=== PATIENT | male | born 1940 | race African-American/Black ===

== ENCOUNTER 2024-01-16 13:59 | Inpatient (IN) | payer OTHER, BC ==
[2024-01-16 15:23] LABS: BASO % 0.2 % (0-2.0); HEMATOCRIT 35.7 % (35.4-49); HEMOGLOBIN 11.6 GM/dL (11.7-16.9); MCH 33.2 pg (25.7-33.7); MCHC 32.5 g/dl (32.0-35.9); MEAN CELL VOLUME 102.2 fl (80-96); MEAN PLT VOLUME 8.2 fl (7.5-11.1); MONO % 5.8 % (3.8-10.2); PLATELET COUNT 255 10^3/uL (134-434); RBC 3.49 M/mm3 (4.00-5.60); RDW 13.4 % (11.9-15.9); WHITE BLOOD COUNT 16.9 K/mm3 (4.0-10.0)
[2024-01-16 15:26] LABS: INR 1.35 (0.83-1.09); PROTHROMBIN TIME (PATIENT) 15.1 SEC (9.7-13.0)
[2024-01-16 15:29] LABS: ACTIVATED PTT 32.5 SECONDS (25.2-36.5)
[2024-01-16] MEDS ORDERED: ACETAMINOPHEN INJECTION 100 ML IVPB ONE ×2 (15:34→21:52)
[2024-01-16 15:40] LABS: POTASSIUM 4.4 mmol/L (3.5-5.1)
[2024-01-16 15:42] LABS: ALBUMIN 2.6 g/dl (3.4-5.0); CALCIUM 8.4 mg/dL (8.5-10.1); MAGNESIUM 2.4 mg/dL (1.8-2.4)
[2024-01-16 15:43] LABS: BLOOD UREA NITROGEN 40.9 mg/dL (7-18)
[2024-01-16 15:45] LABS: CREATININE 2.8 mg/dL (0.55-1.3)
[2024-01-16 15:47] LABS: TOT PROT 7.3 g/dl (6.4-8.2)
[2024-01-16 15:50] LABS: N-TERMINAL BNP 442.2 pg/ml (5-450)
[2024-01-16] MEDS: ACETAMINOPHEN 1000 MG/100 ML BAG IVPB ONE (15:59)
[2024-01-16] MEDS ORDERED: PIPERACILLIN/TAZOB 4.5 GM 4.5 GM/100 ML BAG IVPB ONE (16:02)
[2024-01-16] MEDS: PIPERACILLIN/TAZOB 4.5 GM 4.5 GM in DEXTROSE 5%-WATER 100 ML IVPB ONE (16:06)
[2024-01-16] MEDS: VANCOMYCIN 2,000 MG in DEXTROSE 5%-WATER - 500 ML IVPB ONE (16:46)
[2024-01-16 16:54] LABS: EPI CELLS 7 /uL (0-25.1); HYALINE CASTS 0 /uL (0-3.1); URINE APPEARANCE TURBID; URINE BACTERIA >9,000 /uL (0-1359); URINE BILIRUBIN NEGATIVE (NEGATIVE); URINE COLOR YELLOW; URINE GLUCOSE (UA) 3+ (NEGATIVE); URINE KETONE TRACE (NEGATIVE); URINE LEUK ESTERASE 2+ (NEGATIVE); URINE NITRITE NEGATIVE (NEGATIVE); URINE PROTEIN 1+ (NEGATIVE); URINE RBC 99 /uL (0-23.9); URINE WBC 3529 /uL (0-25.8)
[2024-01-16] MEDS: VANCOMYCIN/WATER 2 GRAMS 2,000 MG/400 ML PIGGYBACK IVPB ONE (17:39)
[2024-01-16 20:26] LABS: RETICULOCYTES 1.53 % (0.5-1.5)
[2024-01-16] MEDS: INSULIN ASPART SLIDING SCALE (NOVOLOG) 1 VIAL SQ SCH (21:27)
[2024-01-16] MEDS: ACETAMINOPHEN 1000 MG/100 ML BAG IVPB SCH (21:55)
[2024-01-16] MEDS: HEPARIN NA (PORCINE) 5,000 UNITS/ML 1ML VIAL SQ SCH (23:29)
[2024-01-16] MEDS: ATORVASTATIN CA 20 MG TABLET (FP) PO SCH (23:29)
[2024-01-16 23:45] VITALS: BMI 30.9
[2024-01-17] MEDS ORDERED: INSULIN (NOVOLOG) ASPART 100 UNITS/ML 10ML VIAL ONE (05:56)
[2024-01-17 08:37] LABS: HEMATOCRIT 31.4 % (35.4-49); HEMOGLOBIN 10.5 GM/dL (11.7-16.9); MCH 34.2 pg (25.7-33.7); MCHC 33.6 g/dl (32.0-35.9); MEAN CELL VOLUME 101.8 fl (80-96); MEAN PLT VOLUME 8.4 fl (7.5-11.1); PLATELET COUNT 232 10^3/uL (134-434); RBC 3.09 M/mm3 (4.00-5.60); RDW 13.6 % (11.9-15.9); WHITE BLOOD COUNT 10.7 K/mm3 (4.0-10.0)
[2024-01-17 08:55] LABS: POTASSIUM 4.1 mmol/L (3.5-5.1)
[2024-01-17 09:13] LABS: ALBUMIN 2.5 g/dl (3.4-5.0)
[2024-01-17 09:14] LABS: BLOOD UREA NITROGEN 42.7 mg/dL (7-18); CALCIUM 8.7 mg/dL (8.5-10.1); MAGNESIUM 2.6 mg/dL (1.8-2.4)
[2024-01-17 09:17] LABS: CREATININE 2.6 mg/dL (0.55-1.3); TOT PROT 6.7 g/dl (6.4-8.2)
[2024-01-17 09:18] LABS: BILIRUBIN,TOTAL 0.9 mg/dL (0.2-1)
[2024-01-17 10:02] LABS: URIC ACID 8.1 mg/dL (2.6-7.2)
[2024-01-17] MEDS: ASPIRIN 81 MG CHEWABLE TABLETS PO SCH (10:32)
[2024-01-17] MEDS: FINASTERIDE 5 MG TABLET (FP) PO SCH (10:32)
[2024-01-17] MEDS: PIPERACILLIN/TAZOB 2.25 GM 2.25 GM in DEXTROSE 5%-WATER - 50 ML IVPB SCH (12:49)
[2024-01-17] MEDS: SODIUM CHLORIDE 0.45% 1,000 ML IV SCH (12:49)
[2024-01-17] MEDS ORDERED: VANCOMYCIN/WATER 1250 MG 1,250 MG/250 ML BAG IVPB SCH ×2 (17:40)
[2024-01-17] MEDS ORDERED: PIPERACILLIN/TAZOB 4.5 GM 4.5 GM in DEXTROSE 5%-WATER 100 ML IVPB SCH (22:00)
[2024-01-18 07:49] LABS: BASO % 0.3 % (0-2.0); EOS % 1.6 % (0-4.5); HEMATOCRIT 28.6 % (35.4-49); HEMOGLOBIN 9.5 GM/dL (11.7-16.9); LYMPH % 32.9 % (8-40); MCH 33.9 pg (25.7-33.7); MCHC 33.3 g/dl (32.0-35.9); MEAN CELL VOLUME 101.7 fl (80-96); MEAN PLT VOLUME 8.3 fl (7.5-11.1); MONO % 9.6 % (3.8-10.2); NEUT % 55.6 % (42.8-82.8); PLATELET COUNT 233 10^3/uL (134-434); RBC 2.81 M/mm3 (4.00-5.60); RDW 13.7 % (11.9-15.9); WHITE BLOOD COUNT 8.2 K/mm3 (4.0-10.0)
[2024-01-18 08:11] LABS: POTASSIUM 4.1 mmol/L (3.5-5.1)
[2024-01-18 08:18] LABS: CALCIUM 8.5 mg/dL (8.5-10.1)
[2024-01-18 08:19] LABS: ALBUMIN 2.4 g/dl (3.4-5.0); BLOOD UREA NITROGEN 40.1 mg/dL (7-18)
[2024-01-18 08:22] LABS: CREATININE 2.4 mg/dL (0.55-1.3)
[2024-01-18 08:23] LABS: BILIRUBIN,TOTAL 0.9 mg/dL (0.2-1); TOT PROT 6.7 g/dl (6.4-8.2)
[2024-01-18] MEDS ORDERED: INSULIN (NOVOLOG) ASPART 100 UNITS/ML 10ML VIAL ONE ×2 (12:35→21:08)
[2024-01-19 07:39] LABS: BASO % 0.2 % (0-2.0); EOS % 2.7 % (0-4.5); HEMOGLOBIN 10.3 GM/dL (11.7-16.9); MCH 34.1 pg (25.7-33.7); MCHC 33.4 g/dl (32.0-35.9); MEAN CELL VOLUME 102.1 fl (80-96); MEAN PLT VOLUME 8.4 fl (7.5-11.1); MONO % 8.7 % (3.8-10.2); NEUT % 45.4 % (42.8-82.8); PLATELET COUNT 235 10^3/uL (134-434); RBC 3.04 M/mm3 (4.00-5.60); RDW 13.4 % (11.9-15.9); WHITE BLOOD COUNT 6.5 K/mm3 (4.0-10.0)
[2024-01-19 07:59] LABS: POTASSIUM 4.2 mmol/L (3.5-5.1)
[2024-01-19 08:00] LABS: ALBUMIN 2.3 g/dl (3.4-5.0); CALCIUM 8.3 mg/dL (8.5-10.1)
[2024-01-19 08:04] LABS: CREATININE 2.3 mg/dL (0.55-1.3)
[2024-01-19 08:05] LABS: BILIRUBIN,TOTAL 0.6 mg/dL (0.2-1); TOT PROT 6.6 g/dl (6.4-8.2)
[2024-01-19] MEDS ORDERED: ACETAMINOPHEN 500 MG TABLET (FP) PO PRN (08:18)
[2024-01-19] MEDS ORDERED: INSULIN (NOVOLOG) ASPART 100 UNITS/ML 10ML VIAL ONE (10:53)
[2024-01-19] MEDS: CEFTRIAXONE 2 GM in DEXTROSE 5%-WATER 100 ML IVPB SCH (13:31)
[2024-01-19] MEDS: PIPERACILLIN/TAZOB 4.5 GM 4.5 GM in DEXTROSE 5%-WATER 100 ML IVPB SCH (17:41)
[2024-01-20 07:04] LABS: HEMATOCRIT 30.6 % (35.4-49); HEMOGLOBIN 10.5 GM/dL (11.7-16.9); MCH 34.6 pg (25.7-33.7); MCHC 34.3 g/dl (32.0-35.9); MEAN CELL VOLUME 100.8 fl (80-96); MEAN PLT VOLUME 8.5 fl (7.5-11.1); PLATELET COUNT 252 10^3/uL (134-434); RBC 3.03 M/mm3 (4.00-5.60); RDW 13.7 % (11.9-15.9); WHITE BLOOD COUNT 6.5 K/mm3 (4.0-10.0)
[2024-01-20 07:27] LABS: ALBUMIN 2.4 g/dl (3.4-5.0); BLOOD UREA NITROGEN 22.8 mg/dL (7-18); CALCIUM 8.8 mg/dL (8.5-10.1)
[2024-01-20 07:29] LABS: CREATININE 1.9 mg/dL (0.55-1.3)
[2024-01-20 07:31] LABS: BILIRUBIN,TOTAL 0.4 mg/dL (0.2-1); TOT PROT 6.3 g/dl (6.4-8.2)
[2024-01-20] MEDS ORDERED: INSULIN (NOVOLOG) ASPART 100 UNITS/ML 10ML VIAL ONE ×2 (18:02→21:07)
[2024-01-21] MEDS ORDERED: INSULIN (NOVOLOG) ASPART 100 UNITS/ML 10ML VIAL ONE (05:43)
[2024-01-21 08:31] LABS: HEMATOCRIT 31.8 % (35.4-49); HEMOGLOBIN 10.8 GM/dL (11.7-16.9); MCH 33.9 pg (25.7-33.7); MCHC 33.8 g/dl (32.0-35.9); MEAN CELL VOLUME 100.5 fl (80-96); MEAN PLT VOLUME 8.5 fl (7.5-11.1); PLATELET COUNT 287 10^3/uL (134-434); RBC 3.17 M/mm3 (4.00-5.60); RDW 13.8 % (11.9-15.9); WHITE BLOOD COUNT 6.5 K/mm3 (4.0-10.0)
[2024-01-21 08:59] LABS: POTASSIUM 4.4 mmol/L (3.5-5.1)
[2024-01-21 09:10] LABS: ALBUMIN 2.4 g/dl (3.4-5.0); BLOOD UREA NITROGEN 19.9 mg/dL (7-18); CALCIUM 8.7 mg/dL (8.5-10.1)
[2024-01-21 09:12] LABS: CREATININE 1.7 mg/dL (0.55-1.3)
[2024-01-21 09:20] LABS: BILIRUBIN,TOTAL 0.5 mg/dL (0.2-1)
[2024-01-21 21:51] VITALS: RESP 18
[2024-01-22 07:17] LABS: HEMATOCRIT 32.8 % (35.4-49); MCH 34.4 pg (25.7-33.7); MCHC 33.7 g/dl (32.0-35.9); PLATELET COUNT 285 10^3/uL (134-434); RBC 3.21 M/mm3 (4.00-5.60); RDW 13.6 % (11.9-15.9); WHITE BLOOD COUNT 7.6 K/mm3 (4.0-10.0)
[2024-01-22 07:34] LABS: POTASSIUM 4.4 mmol/L (3.5-5.1)
[2024-01-22 07:36] LABS: CALCIUM 8.7 mg/dL (8.5-10.1)
[2024-01-22 07:37] LABS: ALBUMIN 2.4 g/dl (3.4-5.0); BLOOD UREA NITROGEN 19.8 mg/dL (7-18)
[2024-01-22 07:40] LABS: CREATININE 1.7 mg/dL (0.55-1.3)
[2024-01-22 07:41] LABS: BILIRUBIN,TOTAL 0.4 mg/dL (0.2-1); TOT PROT 6.8 g/dl (6.4-8.2)
[2024-01-22] MEDS ORDERED: LOSARTAN POTASSIUM 25 MG TABLET PO SCH (10:00)
[2024-01-22] MEDS: CEFPODOXIME PROXETIL 200 MG TABLET [NF] PO SCH (10:57)
[2024-01-22] MEDS: LOSARTAN POTASSIUM 50 MG TABLET PO SCH (10:57)
[2024-01-22] MEDS: FUROSEMIDE 40 MG TABLET (FP) PO SCH (17:28)
[2024-01-22] MEDS ORDERED: INSULIN (NOVOLOG) ASPART 100 UNITS/ML 10ML VIAL ONE (21:53)
[2024-01-23 06:12] VITALS: BP 128/75; PULSE 65; TEMP 97.3
== END 2024-01-23 11:26 | DRG 871 ==
LOC: JER 13:59 → JERBED 15:29 → J7W 22:46
PROVIDERS: ADMIT Internal Medicine; ATTEND Nurse Practitioner
DX: A41.59 Other Gram-negative sepsis (principal); G93.41 Metabolic encephalopathy; S22.32XA Fracture of one rib, left side, initial encounter for closed fracture; N39.0 Urinary tract infection, site not specified; I13.0 Hypertensive heart and chronic kidney disease with heart failure and stage 1 through stage 4 chronic kidney disease, or unspecified chronic kidney disease; N18.4 Chronic kidney disease, stage 4 (severe); I50.30 Unspecified diastolic (congestive) heart failure; E11.22 Type 2 diabetes mellitus with diabetic chronic kidney disease; F03.90 Unspecified dementia, unspecified severity, without behavioral disturbance, psychotic disturbance, mood disturbance, and anxiety; I25.10 Atherosclerotic heart disease of native coronary artery without angina pectoris; N40.0 Benign prostatic hyperplasia without lower urinary tract symptoms; E78.5 Hyperlipidemia, unspecified; E66.9 Obesity, unspecified; Z68.31 Body mass index [BMI] 31.0-31.9, adult; E86.0 Dehydration; X58.XXXA Exposure to other specified factors, initial encounter; Y93.9 Activity, unspecified; Y92.89 Other specified places as the place of occurrence of the external cause; Y99.9 Unspecified external cause status
CPT/HCPCS: 0241U-QW; 36415; 70450-TC; 71045-TC-FY; 74176-TC; 76775-TC; 80048; 80053; 81003; 82306; 82550; 82553; 82570; 82607; 82728; 82746; 82962; 83540; 83550; 83690; 83735; 83880; 84100; 84300; 84443; 84484; 84550; 85025; 85027; 85045; 85610; 85730; 87040; 87086; 87186; 93005; 93010; 93306-TC; 97116-GP; 99291; J0131; J1644

== ENCOUNTER 2024-04-15 11:41 | Inpatient (IN) | payer OTHER, BC ==
[2024-04-15 14:45] LABS: BASO % 0.4 % (0-2.0); EOS % 2.5 % (0-4.5); HEMATOCRIT 32.4 % (35.4-49); HEMOGLOBIN 10.5 GM/dL (11.7-16.9); LYMPH % 42.2 % (8-40); MCH 33.7 pg (25.7-33.7); MCHC 32.5 g/dl (32.0-35.9); MEAN CELL VOLUME 103.7 fl (80-96); MEAN PLT VOLUME 8.1 fl (7.5-11.1); MONO % 8.8 % (3.8-10.2); NEUT % 46.1 % (42.8-82.8); PLATELET COUNT 192 10^3/uL (134-434); RBC 3.12 M/mm3 (4.00-5.60); RDW 14.5 % (11.9-15.9); WHITE BLOOD COUNT 5.4 K/mm3 (4.0-10.0)
[2024-04-15 14:58] LABS: INR 1.25 (0.83-1.09); PROTHROMBIN TIME (PATIENT) 14.3 SEC (9.7-13.0)
[2024-04-15 15:04] LABS: POTASSIUM 4.3 mmol/L (3.5-5.1)
[2024-04-15 15:07] LABS: CALCIUM 8.8 mg/dL (8.5-10.1)
[2024-04-15 15:08] LABS: ALBUMIN 2.9 g/dl (3.4-5.0); BLOOD UREA NITROGEN 21.9 mg/dL (7-18); MAGNESIUM 2.1 mg/dL (1.8-2.4)
[2024-04-15 15:11] LABS: CREATININE 1.7 mg/dL (0.55-1.3); PHOSPHOROUS 2.9 mg/dL (2.5-4.9)
[2024-04-15 15:12] LABS: BILIRUBIN,TOTAL 0.6 mg/dL (0.2-1); TOT PROT 7.4 g/dl (6.4-8.2)
[2024-04-15 15:16] LABS: N-TERMINAL BNP 556.6 pg/ml (5-450)
[2024-04-15] MEDS ORDERED: PIPERACILLIN/TAZOB 3.375 GM 3.375 GM/50 ML BAG IVPB ONE (17:54)
[2024-04-15] MEDS ORDERED: FUROSEMIDE 40 MG/4 ML INJECTABLE VIAL ONE (17:54)
[2024-04-15] MEDS: FUROSEMIDE 40 MG/4 ML INJECTABLE VIAL IVPUSH ONE ×2 (17:56)
[2024-04-15] MEDS: PIPERACILLIN/TAZOB 3.375 GM 3.375 GM in DEXTROSE 5%-WATER - 50 ML IVPB ONE (17:56)
[2024-04-15] MEDS: VANCOMYCIN PREMIX 1.5 GM 1,500 MG/300 ML BAG IVPB ONE (18:20)
[2024-04-15] MEDS: VANCOMYCIN HCL 1,500 MG in DEXTROSE 5%-WATER - 500 ML IVPB ONE (18:20)
[2024-04-15] MEDS ORDERED: PATIENT'S OWN MEDICATION (NON-FORMULARY) (Diclofenac Sodium 0.01 MG/MG Gel) TD SCH (22:00)
[2024-04-15] MEDS: LACTULOSE 20 GM/30 ML UDC (FOR ORAL USE ONLY) PO SCH (23:40)
[2024-04-15] MEDS: LIDOCAINE 4% PATCH TP SCH (23:40)
[2024-04-15] MEDS: LABETALOL HCL 200 MG TABLET (FP) PO SCH (23:42)
[2024-04-15] MEDS: ATORVASTATIN CA 20 MG TABLET (FP) PO SCH (23:42)
[2024-04-15] MEDS: INSULIN ASPART SLIDING SCALE (NOVOLOG) 1 VIAL SQ SCH (23:43)
[2024-04-15] MEDS: LATANOPROST 0.005% OPHTH SOLN 2.5ML BOTTLE OU SCH (23:43)
[2024-04-16] MEDS: FUROSEMIDE 40 MG/4 ML INJECTABLE VIAL IVPUSH SCH (06:24)
[2024-04-16 08:50] LABS: BASO % 0.5 % (0-2.0); HEMATOCRIT 34.8 % (35.4-49); HEMOGLOBIN 11.5 GM/dL (11.7-16.9); LYMPH % 41.7 % (8-40); MCH 33.7 pg (25.7-33.7); MCHC 33.1 g/dl (32.0-35.9); MEAN CELL VOLUME 101.6 fl (80-96); MEAN PLT VOLUME 8.1 fl (7.5-11.1); NEUT % 45.8 % (42.8-82.8); PLATELET COUNT 188 10^3/uL (134-434); RBC 3.43 M/mm3 (4.00-5.60); RDW 14.6 % (11.9-15.9); WHITE BLOOD COUNT 4.9 K/mm3 (4.0-10.0)
[2024-04-16 09:10] LABS: POTASSIUM 3.7 mmol/L (3.5-5.1)
[2024-04-16 09:13] LABS: CALCIUM 9.3 mg/dL (8.5-10.1)
[2024-04-16 09:14] LABS: BLOOD UREA NITROGEN 22.3 mg/dL (7-18); MAGNESIUM 2.1 mg/dL (1.8-2.4)
[2024-04-16 09:16] LABS: CREATININE 1.7 mg/dL (0.55-1.3)
[2024-04-16 09:17] LABS: PHOSPHOROUS 3.1 mg/dL (2.5-4.9)
[2024-04-16 09:18] LABS: BILIRUBIN,TOTAL 0.6 mg/dL (0.2-1); TOT PROT 7.5 g/dl (6.4-8.2)
[2024-04-16] MEDS: ENOXAPARIN NA (PORCINE) 40 MG/0.4 ML DISP.SYRIN SQ SCH (09:21)
[2024-04-16] MEDS: ASPIRIN 81 MG CHEWABLE TABLETS PO SCH (09:21)
[2024-04-16] MEDS: amLODIPine BESYLATE 10 MG TABLET (FP) PO SCH (09:21)
[2024-04-16] MEDS: FINASTERIDE 5 MG TABLET (FP) PO SCH (09:21)
[2024-04-16] MEDS: LOSARTAN POTASSIUM 50 MG TABLET PO SCH (09:21)
[2024-04-16] MEDS: FOLIC ACID 1 MG TABLET (FP) PO SCH (09:21)
[2024-04-16] MEDS: LIDOCAINE PATCH REMOVAL MC SCH (09:24)
[2024-04-17] MEDS: FUROSEMIDE 40 MG TABLET (FP) PO SCH (06:34)
[2024-04-17 08:47] LABS: BASO % 0.6 % (0-2.0); EOS % 0.6 % (0-4.5); HEMATOCRIT 33.4 % (35.4-49); HEMOGLOBIN 11.2 GM/dL (11.7-16.9); LYMPH % 39.4 % (8-40); MCHC 33.7 g/dl (32.0-35.9); MEAN CELL VOLUME 100.9 fl (80-96); MEAN PLT VOLUME 8.6 fl (7.5-11.1); NEUT % 51.4 % (42.8-82.8); PLATELET COUNT 205 10^3/uL (134-434); RBC 3.31 M/mm3 (4.00-5.60); RDW 14.1 % (11.9-15.9); WHITE BLOOD COUNT 5.4 K/mm3 (4.0-10.0)
[2024-04-17 09:09] LABS: POTASSIUM 3.9 mmol/L (3.5-5.1)
[2024-04-17 09:20] LABS: CALCIUM 9.2 mg/dL (8.5-10.1)
[2024-04-17 09:21] LABS: BLOOD UREA NITROGEN 20.8 mg/dL (7-18); MAGNESIUM 1.9 mg/dL (1.8-2.4)
[2024-04-17 09:24] LABS: CREATININE 1.8 mg/dL (0.55-1.3)
[2024-04-17 09:25] LABS: BILIRUBIN,TOTAL 0.7 mg/dL (0.2-1); TOT PROT 7.5 g/dl (6.4-8.2)
[2024-04-17] MEDS: FUROSEMIDE 40 MG/4 ML INJECTABLE VIAL IVPB SCH (13:51)
[2024-04-17 15:42] VITALS: BMI 32.7
[2024-04-18 08:10] LABS: BASO % 0.8 % (0-2.0); EOS % 0.3 % (0-4.5); HEMATOCRIT 32.6 % (35.4-49); HEMOGLOBIN 10.7 GM/dL (11.7-16.9); LYMPH % 44.5 % (8-40); MCH 33.9 pg (25.7-33.7); MCHC 32.9 g/dl (32.0-35.9); MEAN PLT VOLUME 8.6 fl (7.5-11.1); MONO % 9.2 % (3.8-10.2); NEUT % 45.2 % (42.8-82.8); PLATELET COUNT 183 10^3/uL (134-434); RBC 3.17 M/mm3 (4.00-5.60); RDW 14.5 % (11.9-15.9)
[2024-04-18 08:29] LABS: POTASSIUM 3.8 mmol/L (3.5-5.1)
[2024-04-18 08:31] LABS: CALCIUM 8.8 mg/dL (8.5-10.1); MAGNESIUM 1.9 mg/dL (1.8-2.4)
[2024-04-18 08:34] LABS: CREATININE 1.7 mg/dL (0.55-1.3)
[2024-04-18 08:36] LABS: BILIRUBIN,TOTAL 0.6 mg/dL (0.2-1); TOT PROT 7.1 g/dl (6.4-8.2)
[2024-04-18] MEDS: DEXTROSE 5%-WATER - 250 ML IV SCH (16:14)
[2024-04-19 07:16] VITALS: RESP 18
[2024-04-19 08:30] LABS: HEMATOCRIT 33.1 % (35.4-49); HEMOGLOBIN 10.9 GM/dL (11.7-16.9); MCH 33.5 pg (25.7-33.7); MCHC 32.9 g/dl (32.0-35.9); MEAN CELL VOLUME 101.6 fl (80-96); PLATELET COUNT 181 10^3/uL (134-434); RBC 3.26 M/mm3 (4.00-5.60); RDW 14.4 % (11.9-15.9); WHITE BLOOD COUNT 6.2 K/mm3 (4.0-10.0)
[2024-04-19 08:31] LABS: BASO % 0.4 % (0-2.0); EOS % 2.1 % (0-4.5); LYMPH % 46.2 % (8-40); MEAN PLT VOLUME 9.1 fl (7.5-11.1); MONO % 11.1 % (3.8-10.2); NEUT % 40.2 % (42.8-82.8)
[2024-04-19 08:36] LABS: POTASSIUM 3.6 mmol/L (3.5-5.1)
[2024-04-19 08:45] LABS: ALBUMIN 3.2 g/dl (3.4-5.0); BLOOD UREA NITROGEN 27.3 mg/dL (7-18); CALCIUM 8.9 mg/dL (8.5-10.1)
[2024-04-19 08:47] LABS: MAGNESIUM 2.1 mg/dL (1.8-2.4)
[2024-04-19 08:49] LABS: BILIRUBIN,TOTAL 0.8 mg/dL (0.2-1); CREATININE 1.8 mg/dL (0.55-1.3); TOT PROT 7.5 g/dl (6.4-8.2)
[2024-04-19 13:37] VITALS: BP 117/63; PULSE 67; TEMP 98.4
== END 2024-04-19 14:12 | disposition home or self-care (01) | DRG 291 ==
LOC: JER 11:41 → JERBED 17:05 → J8W 21:10 → OBSVTOIN 04-16 08:52
PROVIDERS: ADMIT Internal Medicine; ATTEND Internal Medicine
DX: I13.0 Hypertensive heart and chronic kidney disease with heart failure and stage 1 through stage 4 chronic kidney disease, or unspecified chronic kidney disease (principal); I50.33 Acute on chronic diastolic (congestive) heart failure; N18.30 Chronic kidney disease, stage 3 unspecified; E11.22 Type 2 diabetes mellitus with diabetic chronic kidney disease; I25.10 Atherosclerotic heart disease of native coronary artery without angina pectoris; F03.90 Unspecified dementia, unspecified severity, without behavioral disturbance, psychotic disturbance, mood disturbance, and anxiety; E78.5 Hyperlipidemia, unspecified; M25.512 Pain in left shoulder; R29.810 Facial weakness; E66.9 Obesity, unspecified; Z68.30 Body mass index [BMI] 30.0-30.9, adult; N48.89 Other specified disorders of penis; N40.0 Benign prostatic hyperplasia without lower urinary tract symptoms; I35.0 Nonrheumatic aortic (valve) stenosis
CPT/HCPCS: 0241U-QW; 36415; 71045-TC-FY; 73030-TC-LT-FY; 80053; 82140; 82607; 82746; 82962; 83735; 83880; 84100; 84484; 85025; 85610; 85730; 86850; 86900; 86901; 87635; 93005; 93010; 93306-TC; 93970-TC; 93971; 97116-GP; 97161-GP; 99285-25; G0378

== ENCOUNTER 2024-06-06 13:29 | Inpatient (IN) | payer OTHER, BC ==
[2024-06-06 14:36] LABS: BASO % 0.2 % (0-2.0); EOS % 0.1 % (0-4.5); HEMATOCRIT 40.7 % (35.4-49); HEMOGLOBIN 13.4 GM/dL (11.7-16.9); MCH 32.4 pg (25.7-33.7); MCHC 32.9 g/dl (32.0-35.9); MEAN CELL VOLUME 98.6 fl (80-96); MEAN PLT VOLUME 8.5 fl (7.5-11.1); MONO % 6.6 % (3.8-10.2); NEUT % 89.1 % (42.8-82.8); PLATELET COUNT 213 10^3/uL (134-434); RBC 4.13 M/mm3 (4.00-5.60); RDW 13.5 % (11.9-15.9)
[2024-06-06] MEDS ORDERED: ACETAMINOPHEN INJECTION 100 ML ONE (14:36)
[2024-06-06 14:40] LABS: VENOUS BASE EXCESS 1.6 mmol/L (-2-2); VENOUS O2 SATURATION 79.7 % (70-80); VENOUS PCO2 44.8 mmHg (38-52); VENOUS PH 7.396 (7.310-7.410)
[2024-06-06 14:43] LABS: INR 1.15 (0.83-1.09); PROTHROMBIN TIME (PATIENT) 13.2 SEC (9.7-13.0)
[2024-06-06] MEDS: ACETAMINOPHEN 1000 MG/100 ML BAG IVPB ONE (14:44)
[2024-06-06] MEDS: SODIUM CHLORIDE 1,000 ML IV STA ×2 (14:44→15:57)
[2024-06-06 14:45] LABS: ACTIVATED PTT 30.3 SECONDS (25.2-36.5)
[2024-06-06] MEDS ORDERED: PIPERACILLIN/TAZOB 3.375 GM 3.375 GM/50 ML BAG IVPB ONE (14:46)
[2024-06-06 14:53] LABS: POTASSIUM 4.2 mmol/L (3.5-5.1)
[2024-06-06 14:56] LABS: ALBUMIN 3.2 g/dl (3.4-5.0); BLOOD UREA NITROGEN 35.1 mg/dL (7-18); CALCIUM 9.4 mg/dL (8.5-10.1)
[2024-06-06] MEDS ORDERED: VANCOMYCIN 1 GRAM (PRE-DOCKED) 1,000 MG/250 ML BAG IVPB ONE (14:56)
[2024-06-06 14:59] LABS: CREATININE 2.5 mg/dL (0.55-1.3)
[2024-06-06 15:00] LABS: BILIRUBIN,TOTAL 0.8 mg/dL (0.2-1)
[2024-06-06 15:01] LABS: TOT PROT 8.2 g/dl (6.4-8.2)
[2024-06-06] MEDS: PIPERACILLIN/TAZOB 3.375 GM 3.375 GM in DEXTROSE 5%-WATER - 50 ML IVPB ONE (15:13)
[2024-06-06 15:38] LABS: EPI CELLS 4 /uL (0-25.1); HYALINE CASTS 0 /uL (0-3.1); PH,URINE 5.5 (5.0-8.0); URINE APPEARANCE CLOUDY; URINE BACTERIA >9,000 /uL (0-1359); URINE BILIRUBIN NEGATIVE (NEGATIVE); URINE COLOR YELLOW; URINE GLUCOSE (UA) 3+ (NEGATIVE); URINE KETONE NEGATIVE (NEGATIVE); URINE LEUK ESTERASE 2+ (NEGATIVE); URINE NITRITE NEGATIVE (NEGATIVE); URINE PROTEIN 1+ (NEGATIVE); URINE RBC 18 /uL (0-23.9); URINE UROBILINOGEN 0.2 mg/dL (0.2-1.0); URINE WBC 1475 /uL (0-25.8)
[2024-06-06 15:48] LABS: LACTIC ACID 2.4 mmol/L (0.4-2.0)
[2024-06-06] MEDS: VANCOMYCIN 1,000 MG in DEXTROSE 5%-WATER - 250 ML IVPB ONE (15:57)
[2024-06-06 17:24] LABS: LACTIC ACID 2.4 mmol/L (0.4-2.0)
[2024-06-06] MEDS ORDERED: ATORVASTATIN CA 20 MG TABLET (FP) ONE (21:26)
[2024-06-06] MEDS ORDERED: INSULIN (LEVEMIR) 100 UNITS/ML UNITS SQ ONE ×2 (21:27→21:28)
[2024-06-06] MEDS ORDERED: LABETALOL HCL 100 MG TABLET (FP) ONE (21:27)
[2024-06-06] MEDS ORDERED: LACTULOSE 20 GM/30 ML UDC (FOR ORAL USE ONLY) ONE (21:27)
[2024-06-06] MEDS: INSULIN (LEVEMIR) 100 UNITS/ML UNITS SQ SCH (21:41)
[2024-06-06] MEDS: ATORVASTATIN CA 20 MG TABLET (FP) PO SCH (21:41)
[2024-06-06] MEDS: LACTULOSE 20 GM/30 ML UDC (FOR ORAL USE ONLY) PO SCH (21:41)
[2024-06-06] MEDS: LABETALOL HCL 200 MG TABLET (FP) PO SCH (21:42)
[2024-06-06] MEDS: LATANOPROST 0.005% OPHTH SOLN 2.5ML BOTTLE OU SCH (22:06)
[2024-06-07 01:07] LABS: LACTIC ACID 2.3 mmol/L (0.4-2.0)
[2024-06-07] MEDS: SODIUM CHLORIDE 1,000 ML IV STA (02:18)
[2024-06-07] MEDS ORDERED: LACTULOSE 20 GM/30 ML UDC (FOR ORAL USE ONLY) ONE (06:04)
[2024-06-07 08:49] LABS: HEMATOCRIT 35.4 % (35.4-49); HEMOGLOBIN 11.4 GM/dL (11.7-16.9); MCH 32.3 pg (25.7-33.7); MCHC 32.3 g/dl (32.0-35.9); MEAN CELL VOLUME 100.1 fl (80-96); MEAN PLT VOLUME 8.7 fl (7.5-11.1); PLATELET COUNT 175 10^3/uL (134-434); RBC 3.54 M/mm3 (4.00-5.60); RDW 13.3 % (11.9-15.9); WHITE BLOOD COUNT 12.1 K/mm3 (4.0-10.0)
[2024-06-07 09:22] LABS: ALBUMIN 2.8 g/dl (3.4-5.0); BLOOD UREA NITROGEN 33.9 mg/dL (7-18); CALCIUM 8.8 mg/dL (8.5-10.1); MAGNESIUM 2.4 mg/dL (1.8-2.4)
[2024-06-07 09:25] LABS: CREATININE 2.2 mg/dL (0.55-1.3); PHOSPHOROUS 3.4 mg/dL (2.5-4.9)
[2024-06-07 09:27] LABS: BILIRUBIN,TOTAL 0.9 mg/dL (0.2-1); TOT PROT 7.1 g/dl (6.4-8.2)
[2024-06-07] MEDS ORDERED: amLODIPine BESYLATE 10 MG TABLET (FP) ONE (10:07)
[2024-06-07] MEDS ORDERED: LABETALOL HCL 200 MG TABLET (FP) ONE (10:07)
[2024-06-07] MEDS ORDERED: CEFTRIAXONE 1 GM/50 ML BAG ONE (10:08)
[2024-06-07] MEDS ORDERED: ASPIRIN 81 MG CHEWABLE TABLETS ONE (10:08)
[2024-06-07] MEDS: ASPIRIN 81 MG CHEWABLE TABLETS PO SCH (10:23)
[2024-06-07] MEDS: CEFTRIAXONE 1 GM in DEXTROSE 5%-WATER - 50 ML IVPB SCH (10:28)
[2024-06-07] MEDS: amLODIPine BESYLATE 10 MG TABLET (FP) PO SCH (10:28)
[2024-06-07] MEDS: EMPAGLIFLOZIN (JARDIANCE) 10 MG TABLET PO SCH (10:32)
[2024-06-07] MEDS: FINASTERIDE 5 MG TABLET (FP) PO SCH (10:32)
[2024-06-08] MEDS: EMPAGLIFLOZIN (JARDIANCE) 10 MG TABLET PO SCH (06:08)
[2024-06-08] MEDS: CEFTRIAXONE 2 GM in DEXTROSE 5%-WATER - 50 ML IVPB SCH ×2 (10:19→10:20)
[2024-06-08] MEDS: SODIUM CHLORIDE 1,000 ML IV SCH (12:08)
[2024-06-08 12:29] LABS: HEMATOCRIT 32.8 % (35.4-49); HEMOGLOBIN 10.6 GM/dL (11.7-16.9); MCH 32.5 pg (25.7-33.7); MCHC 32.4 g/dl (32.0-35.9); MEAN CELL VOLUME 100.2 fl (80-96); MEAN PLT VOLUME 9.1 fl (7.5-11.1); PLATELET COUNT 175 10^3/uL (134-434); RBC 3.27 M/mm3 (4.00-5.60); RDW 13.8 % (11.9-15.9); WHITE BLOOD COUNT 8.6 K/mm3 (4.0-10.0)
[2024-06-08 12:35] LABS: POTASSIUM 4.3 mmol/L (3.5-5.1)
[2024-06-08 12:38] LABS: CALCIUM 9.5 mg/dL (8.5-10.1)
[2024-06-08 12:39] LABS: ALBUMIN 2.7 g/dl (3.4-5.0); BLOOD UREA NITROGEN 30.9 mg/dL (7-18)
[2024-06-08 12:42] LABS: CREATININE 2.1 mg/dL (0.55-1.3)
[2024-06-08 12:43] LABS: BILIRUBIN,TOTAL 0.8 mg/dL (0.2-1)
[2024-06-08 12:44] LABS: TOT PROT 6.8 g/dl (6.4-8.2)
[2024-06-08] MEDS: ERTAPENEM SODIUM 0.5 GM in SODIUM CHLORIDE 50 ML IVPB SCH (13:26)
[2024-06-08] MEDS ORDERED: INSULIN ASPART SLIDING SCALE (NOVOLOG) 1 VIAL SQ SCH (16:30)
[2024-06-08] MEDS: INSULIN ASPART SLIDING SCALE (NOVOLOG) 1 VIAL SQ SCH (17:44)
[2024-06-08] MEDS: LOSARTAN POTASSIUM 50 MG TABLET PO ONE (21:27)
[2024-06-08] MEDS: amLODIPine BESYLATE 5 MG TABLET (FP) PO ONE (21:27)
[2024-06-09 08:23] LABS: HEMATOCRIT 32.4 % (35.4-49); HEMOGLOBIN 10.7 GM/dL (11.7-16.9); MCH 33.2 pg (25.7-33.7); MCHC 32.9 g/dl (32.0-35.9); MEAN CELL VOLUME 100.8 fl (80-96); MEAN PLT VOLUME 9.1 fl (7.5-11.1); PLATELET COUNT 175 10^3/uL (134-434); RBC 3.21 M/mm3 (4.00-5.60); RDW 13.4 % (11.9-15.9)
[2024-06-09 08:40] LABS: POTASSIUM 4.4 mmol/L (3.5-5.1)
[2024-06-09 08:44] LABS: ALBUMIN 2.6 g/dl (3.4-5.0); BLOOD UREA NITROGEN 30.6 mg/dL (7-18); CALCIUM 8.9 mg/dL (8.5-10.1); MAGNESIUM 2.4 mg/dL (1.8-2.4)
[2024-06-09 08:47] LABS: PHOSPHOROUS 3.7 mg/dL (2.5-4.9)
[2024-06-09 08:48] LABS: BILIRUBIN,TOTAL 0.8 mg/dL (0.2-1); TOT PROT 6.5 g/dl (6.4-8.2)
[2024-06-10 22:48] VITALS: BMI 30.7
[2024-06-11] MEDS ORDERED: LOSARTAN POTASSIUM 50 MG TABLET PO SCH (10:00)
[2024-06-11] MEDS: amLODIPine BESYLATE 10 MG TABLET (FP) PO SCH (10:29)
[2024-06-11] MEDS: LOSARTAN POTASSIUM 50 MG TABLET PO SCH (10:29)
[2024-06-11 11:38] LABS: POTASSIUM 4.3 mmol/L (3.5-5.1)
[2024-06-11 11:54] LABS: CALCIUM 8.6 mg/dL (8.5-10.1)
[2024-06-11 11:55] LABS: ALBUMIN 2.6 g/dl (3.4-5.0)
[2024-06-11 11:58] LABS: CREATININE 1.8 mg/dL (0.55-1.3)
[2024-06-11 11:59] LABS: BILIRUBIN,TOTAL 0.8 mg/dL (0.2-1)
[2024-06-11 12:00] LABS: TOT PROT 7.1 g/dl (6.4-8.2)
[2024-06-11 23:13] VITALS: BP 123/85; PULSE 88; RESP 20; TEMP 99
== END 2024-06-11 23:45 | disposition home or self-care (01) | DRG 872 ==
LOC: JER 13:29 → JERBED 17:02 → J4W 06-07 20:04
PROVIDERS: ADMIT Internal Medicine; ATTEND Internal Medicine
PROC: 02HV33Z Insertion of Infusion Device into Superior Vena Cava, Percutaneous Approach (ICD-10-PCS; principal; 2024-06-11)
PROC: B518ZZA Fluoroscopy of Superior Vena Cava, Guidance (ICD-10-PCS; 2024-06-11)
DX: A41.50 Gram-negative sepsis, unspecified (principal); N17.9 Acute kidney failure, unspecified; E87.20 Acidosis, unspecified; I24.89 Other forms of acute ischemic heart disease; I13.0 Hypertensive heart and chronic kidney disease with heart failure and stage 1 through stage 4 chronic kidney disease, or unspecified chronic kidney disease; I50.32 Chronic diastolic (congestive) heart failure; N18.4 Chronic kidney disease, stage 4 (severe); N39.0 Urinary tract infection, site not specified; F03.90 Unspecified dementia, unspecified severity, without behavioral disturbance, psychotic disturbance, mood disturbance, and anxiety; E78.5 Hyperlipidemia, unspecified; I25.10 Atherosclerotic heart disease of native coronary artery without angina pectoris; N40.1 Benign prostatic hyperplasia with lower urinary tract symptoms; R31.9 Hematuria, unspecified; N20.0 Calculus of kidney; R50.9 Fever, unspecified; N31.9 Neuromuscular dysfunction of bladder, unspecified; E11.22 Type 2 diabetes mellitus with diabetic chronic kidney disease; Z95.5 Presence of coronary angioplasty implant and graft
CPT/HCPCS: 0241U-QW; 36415; 36569; 71045-TC-FY; 76775-TC; 76856-TC; 80053; 80061; 81003; 82803; 82962; 83036; 83605; 83735; 84100; 84439; 84443; 84484; 85025; 85027; 85610; 85730; 86850; 86900; 86901; 87040; 87086; 87186; 93005; 93010; 97116-GP; 97162-GP; 99285-25; J0131

== ENCOUNTER 2024-11-28 15:52 | Inpatient (IN) | payer OTHER, BC ==
[2024-11-28] MEDS ORDERED: ACETAMINOPHEN INJECTION 100 ML ONE (17:19)
[2024-11-28] MEDS: LACTATED RINGERS SOLUTION 1000 ML INFUS.BAG IV ONE ×2 (17:38→19:37)
[2024-11-28] MEDS: ACETAMINOPHEN 1000 MG/100 ML BAG IVPB ONE (17:38)
[2024-11-28 17:57] LABS: ABSOLUTE IMMATURE GRANULOCYTES 0.09 x10^3/uL (0.0-0.031); BASOPHILS # 0.02 x10^3/uL (0.01-0.08); HEMATOCRIT 42.1 % (40.1-51.0); HEMOGLOBIN 13.5 g/dL (13.7-17.5); MCHC 32.1 g/dl (32.3-36.5); MEAN CELL VOLUME 101.9 fl (79.0-92.2); MEAN PLT VOLUME 10.8 fl (9.4-12.4); MONOCYTE # 1.11 x10^3/uL (0.30-0.82); PLATELET COUNT # 171 x10^3/uL (163-337); RDW 12.9 % (12.6-16.6)
[2024-11-28 18:00] LABS: VENOUS PCO2 52.3 mmHg (38-52); VENOUS PH 7.369 (7.310-7.410)
[2024-11-28 18:25] LABS: CHLORIDE 103 mmol/L (98-107); POTASSIUM 4.4 mmol/L (3.5-5.1); SODIUM 142 mmol/L (136-145)
[2024-11-28 18:27] LABS: CALCIUM 9.4 mg/dL (8.5-10.1); LACTIC ACID 2.5 mmol/L (0.4-2.0)
[2024-11-28 18:28] LABS: ALBUMIN 3.3 g/dl (3.4-5.0); ANION GAP 10 mmol/L (4-13); CO2 29 mmol/L (21-32)
[2024-11-28 18:29] LABS: BLOOD UREA NITROGEN 23.3 mg/dL (7-18); GLUCOSE,RANDOM 185 mg/dL (74-106)
[2024-11-28 18:31] LABS: CREATININE 2.5 mg/dL (0.55-1.3); SGOT/AST 19 U/L (15-37); SGPT/ALT 37 U/L (13-61)
[2024-11-28 18:32] LABS: CHOLESTEROL 109 mg/dL (50-200)
[2024-11-28 18:33] LABS: TOT PROT 8.2 g/dl (6.4-8.2)
[2024-11-28 18:34] LABS: BILIRUBIN,TOTAL 1.7 mg/dL (0.2-1); INR 1.45 (0.83-1.09); LDL CHOLESTEROL (ONLY SJRH) 54 mg/dL (5-100); PROTHROMBIN TIME (PATIENT) 15.9 SEC (9.7-13.0)
[2024-11-28 18:35] LABS: ALK PHOS 86 U/L (45-117); HDL CHOLESTEROL 62 mg/dL (40-60)
[2024-11-28 18:37] LABS: ACTIVATED PTT 30.8 SECONDS (25.2-36.5)
[2024-11-28 21:24] LABS: EPI CELLS 2 /uL (0-25.1); HYALINE CASTS 1 /uL (0-3.1); PH,URINE 5.5 (5.0-8.0); URINE APPEARANCE TURBID; URINE BACTERIA >9,000 /uL (0-1359); URINE BILIRUBIN NEGATIVE (NEGATIVE); URINE COLOR YELLOW; URINE GLUCOSE (UA) NEGATIVE (NEGATIVE); URINE KETONE TRACE (NEGATIVE); URINE LEUK ESTERASE 3+ (NEGATIVE); URINE NITRITE NEGATIVE (NEGATIVE); URINE PROTEIN 3+ (NEGATIVE); URINE RBC 79 /uL (0-23.9); URINE WBC 3318 /uL (0-25.8)
[2024-11-28] MEDS ORDERED: ERTAPENEM SODIUM 1 GM VIAL ONE (21:30)
[2024-11-28] MEDS: ERTAPENEM SODIUM 1 GM in SODIUM CHLORIDE 50 ML IVPB ONE (21:44)
[2024-11-28 22:22] LABS: LACTIC ACID 2.5 mmol/L (0.4-2.0)
[2024-11-28] MEDS ORDERED: hydrALAZINE HCL 20 MG/ML VIAL IVPUSH PRN (23:26)
[2024-11-28] MEDS: SODIUM CHLORIDE 1,000 ML IV STA (23:33)
[2024-11-29] MEDS ORDERED: HEPARIN NA (PORCINE) 5,000 UNITS/ML 1ML VIAL ONE (05:46)
[2024-11-29] MEDS: HEPARIN NA (PORCINE) 5,000 UNITS/ML 1ML VIAL SQ SCH (05:52)
[2024-11-29] MEDS: INSULIN ASPART SLIDING SCALE (NOVOLOG) 1 VIAL SQ SCH (08:13)
[2024-11-29] MEDS ORDERED: ERTAPENEM SODIUM 1 GM VIAL ONE (09:20)
[2024-11-29] MEDS ORDERED: ASPIRIN COATED 81 MG TABLET.EC ONE (09:20)
[2024-11-29] MEDS ORDERED: amLODIPine BESYLATE 5 MG TABLET (FP) ONE (09:21)
[2024-11-29] MEDS: FINASTERIDE 5 MG TABLET (FP) PO SCH (09:41)
[2024-11-29] MEDS: ASPIRIN COATED 81 MG TABLET.EC PO SCH (09:41)
[2024-11-29] MEDS: amLODIPine BESYLATE 5 MG TABLET (FP) PO SCH (09:41)
[2024-11-29] MEDS: ERTAPENEM SODIUM 1 GM in SODIUM CHLORIDE 50 ML IVPB SCH (09:41)
[2024-11-29 11:30] LABS: HEMATOCRIT 39.7 % (40.1-51.0); HEMOGLOBIN 12.4 g/dL (13.7-17.5); MCHC 31.2 g/dl (32.3-36.5); MEAN CELL VOLUME 104.5 fl (79.0-92.2); MEAN PLT VOLUME 10.9 fl (9.4-12.4); PLATELET COUNT # 132 x10^3/uL (163-337)
[2024-11-29 11:48] LABS: POTASSIUM 4.5 mmol/L (3.5-5.1)
[2024-11-29 11:53] LABS: BLOOD UREA NITROGEN 26.9 mg/dL (7-18); CALCIUM 8.8 mg/dL (8.5-10.1)
[2024-11-29 11:56] LABS: CREATININE 2.1 mg/dL (0.55-1.3)
[2024-11-29 11:57] LABS: PHOSPHOROUS 3.7 mg/dL (2.5-4.9)
[2024-11-29 11:58] LABS: BILIRUBIN,TOTAL 1.2 mg/dL (0.2-1); TOT PROT 7.8 g/dl (6.4-8.2)
[2024-11-29 12:19] LABS: LACTIC ACID 2.3 mmol/L (0.4-2.0)
[2024-11-29] MEDS ORDERED: POTASSIUM CHLORIDE ORAL LIQUID 20 MEQ/15 ML ONE (13:13)
[2024-11-29] MEDS: MEROPENEM 1 GM in DEXTROSE 5%-WATER 100 ML IVPB SCH ×3 (14:55→17:34)
[2024-11-29] MEDS ORDERED: GABAPENTIN 100 MG CAPSULE PO SCH (17:15)
[2024-11-29] MEDS ORDERED: hydrALAZINE HCL 20 MG/ML VIAL IVPUSH PRN (17:15)
[2024-11-29] MEDS: GABAPENTIN 100 MG CAPSULE PO ONE (17:34)
[2024-11-29] MEDS: FUROSEMIDE 40 MG TABLET (FP) PO SCH (17:34)
[2024-11-29] MEDS: ACETAMINOPHEN 500 MG TABLET (FP) PO PRN (17:35)
[2024-11-29] MEDS ORDERED: MEROPENEM 1 GM in DEXTROSE 5%-WATER 100 ML IVPB SCH (18:00)
[2024-11-29] MEDS: ATORVASTATIN CA 20 MG TABLET (FP) PO SCH (21:11)
[2024-11-29] MEDS: LATANOPROST 0.005% OPHTH SOLN 2.5ML BOTTLE OU SCH (21:57)
[2024-11-30 07:32] LABS: ABSOLUTE IMMATURE GRANULOCYTES 0.02 x10^3/uL (0.0-0.031); BASOPHILS # 0.02 x10^3/uL (0.01-0.08); EOSINOPHIL % 0.8 % (0.8-7.0); EOSINOPHILS # 0.05 x10^3/uL (0.04-0.54); HEMATOCRIT 30.5 % (40.1-51.0); HEMOGLOBIN 9.6 g/dL (13.7-17.5); MCHC 31.5 g/dl (32.3-36.5); MEAN CELL VOLUME 104.8 fl (79.0-92.2); MEAN PLT VOLUME 10.9 fl (9.4-12.4); MONOCYTE # 1.09 x10^3/uL (0.30-0.82); MONOCYTE % 16.6 % (5.3-12.2); PLATELET COUNT # 125 x10^3/uL (163-337); RDW 12.8 % (12.6-16.6)
[2024-11-30 07:42] LABS: BLOOD UREA NITROGEN 29.9 mg/dL (7-18); CALCIUM 8.2 mg/dL (8.5-10.1); MAGNESIUM 1.9 mg/dL (1.8-2.4)
[2024-11-30 07:45] LABS: CREATININE 2.1 mg/dL (0.55-1.3)
[2024-11-30 07:46] LABS: PHOSPHOROUS 3.2 mg/dL (2.5-4.9)
[2024-11-30 07:47] LABS: TOT PROT 6.2 g/dl (6.4-8.2)
[2024-11-30 08:06] LABS: ALBUMIN 2.4 g/dl (3.4-5.0)
[2024-11-30] MEDS: GABAPENTIN 100 MG CAPSULE PO SCH (09:14)
[2024-11-30] MEDS: MEROPENEM-0.9% SODIUM CHLORIDE 1 GM/50 ML BAG IVPB SCH (17:24)
[2024-12-01 07:35] LABS: ALBUMIN 2.5 g/dl (3.4-5.0); BLOOD UREA NITROGEN 32.7 mg/dL (7-18); CALCIUM 8.3 mg/dL (8.5-10.1)
[2024-12-01 07:36] LABS: MAGNESIUM 2.1 mg/dL (1.8-2.4)
[2024-12-01 07:38] LABS: CREATININE 2.1 mg/dL (0.55-1.3)
[2024-12-01 07:39] LABS: TOT PROT 6.5 g/dl (6.4-8.2)
[2024-12-01 07:46] LABS: ABSOLUTE IMMATURE GRANULOCYTES 0.01 x10^3/uL (0.0-0.031); BASOPHILS # 0.02 x10^3/uL (0.01-0.08); EOSINOPHIL % 1.4 % (0.8-7.0); EOSINOPHILS # 0.08 x10^3/uL (0.04-0.54); HEMATOCRIT 30.4 % (40.1-51.0); HEMOGLOBIN 9.5 g/dL (13.7-17.5); MCHC 31.3 g/dl (32.3-36.5); MEAN CELL VOLUME 103.8 fl (79.0-92.2); MEAN PLT VOLUME 11.7 fl (9.4-12.4); MONOCYTE # 1.07 x10^3/uL (0.30-0.82); MONOCYTE % 19.4 % (5.3-12.2); PLATELET COUNT # 147 x10^3/uL (163-337); RDW 12.6 % (12.6-16.6)
[2024-12-02 06:53] LABS: ABSOLUTE IMMATURE GRANULOCYTES 0.01 x10^3/uL (0.0-0.031); BASOPHILS # 0.02 x10^3/uL (0.01-0.08); EOSINOPHIL % 1.9 % (0.8-7.0); HEMOGLOBIN 9.8 g/dL (13.7-17.5); MCHC 31.6 g/dl (32.3-36.5); MEAN CELL VOLUME 103.7 fl (79.0-92.2); MEAN PLT VOLUME 11.5 fl (9.4-12.4); MONOCYTE # 0.74 x10^3/uL (0.30-0.82); MONOCYTE % 14.4 % (5.3-12.2); PLATELET COUNT # 158 x10^3/uL (163-337); RDW 12.3 % (12.6-16.6)
[2024-12-02 07:33] LABS: ALBUMIN 2.5 g/dl (3.4-5.0); BLOOD UREA NITROGEN 31.6 mg/dL (7-18); CALCIUM 8.6 mg/dL (8.5-10.1); MAGNESIUM 2.2 mg/dL (1.8-2.4)
[2024-12-02 07:36] LABS: CREATININE 1.9 mg/dL (0.55-1.3)
[2024-12-02 07:37] LABS: BILIRUBIN,TOTAL 0.9 mg/dL (0.2-1); TOT PROT 6.4 g/dl (6.4-8.2)
[2024-12-02] MEDS: metoPROLOL SUCCINATE 25 MG TAB.SR.24H (FP) PO SCH (15:24)
[2024-12-02] MEDS: MEROPENEM 1 GM in SODIUM CHLORIDE 50 ML IVPB SCH (22:06)
[2024-12-03 07:54] LABS: ABSOLUTE IMMATURE GRANULOCYTES 0.02 x10^3/uL (0.0-0.031); BASOPHILS # 0.02 x10^3/uL (0.01-0.08); EOSINOPHIL % 1.5 % (0.8-7.0); HEMATOCRIT 29.9 % (40.1-51.0); HEMOGLOBIN 9.8 g/dL (13.7-17.5); MCHC 32.8 g/dl (32.3-36.5); MEAN PLT VOLUME 11.3 fl (9.4-12.4); MONOCYTE # 0.81 x10^3/uL (0.30-0.82); MONOCYTE % 11.8 % (5.3-12.2); PLATELET COUNT # 181 x10^3/uL (163-337); RDW 12.2 % (12.6-16.6)
[2024-12-03 08:12] LABS: POTASSIUM 4.3 mmol/L (3.5-5.1)
[2024-12-03 08:18] LABS: CALCIUM 8.8 mg/dL (8.5-10.1); MAGNESIUM 2.2 mg/dL (1.8-2.4)
[2024-12-03 08:20] LABS: ALBUMIN 2.6 g/dl (3.4-5.0); BLOOD UREA NITROGEN 34.3 mg/dL (7-18); CREATININE 2.1 mg/dL (0.55-1.3)
[2024-12-03 08:23] LABS: BILIRUBIN,TOTAL 0.9 mg/dL (0.2-1); TOT PROT 6.8 g/dl (6.4-8.2)
[2024-12-03] MEDS ORDERED: LOSARTAN POTASSIUM 50 MG TABLET PO SCH (10:00)
[2024-12-03] MEDS: amLODIPine BESYLATE 5 MG TABLET (FP) PO SCH (10:45)
[2024-12-04 07:59] LABS: POTASSIUM 3.8 mmol/L (3.5-5.1)
[2024-12-04 08:07] LABS: ALBUMIN 2.6 g/dl (3.4-5.0); BLOOD UREA NITROGEN 37.7 mg/dL (7-18); CALCIUM 8.7 mg/dL (8.5-10.1)
[2024-12-04 08:12] LABS: BILIRUBIN,TOTAL 0.8 mg/dL (0.2-1); TOT PROT 6.7 g/dl (6.4-8.2)
[2024-12-04 15:06] VITALS: BMI 29.2
[2024-12-04 18:25] LABS: HEMATOCRIT 33.2 % (40.1-51.0); HEMOGLOBIN 10.3 g/dL (13.7-17.5); MEAN CELL VOLUME 105.4 fl (79.0-92.2); MEAN PLT VOLUME 11.6 fl (9.4-12.4); PLATELET COUNT # 207 x10^3/uL (163-337); RDW 12.3 % (12.6-16.6)
[2024-12-05 07:21] LABS: HEMATOCRIT 32.8 % (40.1-51.0); HEMOGLOBIN 10.6 g/dL (13.7-17.5); MCHC 32.3 g/dl (32.3-36.5); MEAN CELL VOLUME 102.2 fl (79.0-92.2); MEAN PLT VOLUME 10.3 fl (9.4-12.4); PLATELET COUNT # 233 x10^3/uL (163-337); RDW 12.1 % (12.6-16.6)
[2024-12-05 07:47] LABS: ALBUMIN 2.7 g/dl (3.4-5.0); BLOOD UREA NITROGEN 38.5 mg/dL (7-18)
[2024-12-05 07:52] LABS: BILIRUBIN,TOTAL 0.9 mg/dL (0.2-1)
[2024-12-05] MEDS: LOSARTAN POTASSIUM 50 MG TABLET PO SCH ×2 (09:18→17:23)
[2024-12-05 18:32] VITALS: RESP 18
[2024-12-06] MEDS: HEPARIN NA (PORCINE) 5,000 UNITS/ML 1ML VIAL SQ SCH (06:04)
[2024-12-06] MEDS: INSULIN GLARGINE (LANTUS) 100 UNITS/ML UNITS SQ SCH (06:04)
[2024-12-06 09:16] VITALS: BP 140/82; PULSE 58; TEMP 98.2
[2024-12-09 16:06] LABS: METHYLMALONIC ACID- 1794 nmol/L (0-378)
== END 2024-12-06 15:39 | DRG 871 ==
LOC: JER 15:52 → JERBED 22:04 → J4W 11-29 12:28
PROVIDERS: ADMIT Hospitalist; ATTEND Internal Medicine
DX: A41.59 Other Gram-negative sepsis (principal); G93.41 Metabolic encephalopathy; N17.9 Acute kidney failure, unspecified; I24.89 Other forms of acute ischemic heart disease; I13.0 Hypertensive heart and chronic kidney disease with heart failure and stage 1 through stage 4 chronic kidney disease, or unspecified chronic kidney disease; I50.32 Chronic diastolic (congestive) heart failure; I69.354 Hemiplegia and hemiparesis following cerebral infarction affecting left non-dominant side; I47.20 Ventricular tachycardia, unspecified; N39.0 Urinary tract infection, site not specified; E11.22 Type 2 diabetes mellitus with diabetic chronic kidney disease; N18.30 Chronic kidney disease, stage 3 unspecified; E78.5 Hyperlipidemia, unspecified; F03.90 Unspecified dementia, unspecified severity, without behavioral disturbance, psychotic disturbance, mood disturbance, and anxiety; I25.10 Atherosclerotic heart disease of native coronary artery without angina pectoris; D53.9 Nutritional anemia, unspecified; N40.0 Benign prostatic hyperplasia without lower urinary tract symptoms
CPT/HCPCS: 36415; 70450-TC; 71045-TC-FY; 80053; 80061; 81003; 82550; 82553; 82607; 82728; 82803; 82962; 83036; 83540; 83550; 83605; 83735; 83921; 84100; 84439; 84443; 84484; 85025; 85027; 85610; 85730; 86850; 86900; 86901; 87040; 87086; 87186; 87635; 93005; 93010; 93306-TC; 97116-GP; 97162-GP; 99285-25; J0131; J1644

== ENCOUNTER 2025-03-20 11:06 | Inpatient (IN) | payer OTHER, BC ==
[2025-03-20] MEDS: SODIUM CHLORIDE 0.9% 500 ML INFUS.BAG IV ONE ×2 (14:58→16:45)
[2025-03-20 14:59] LABS: MCHC 31.7 g/dl (32.3-36.5); MEAN CELL VOLUME 103.5 fl (79.0-92.2); MEAN PLT VOLUME 11.0 fl (9.4-12.4); RDW 13.4 % (12.6-16.6)
[2025-03-20 15:08] LABS: INR 1.77 (0.83-1.09); PROTHROMBIN TIME (PATIENT) 19.3 SEC (9.7-13.0)
[2025-03-20 15:11] LABS: ACTIVATED PTT 33.4 SECONDS (25.2-36.5)
[2025-03-20 15:45] LABS: CO2 30.0 mmol/L (21-32)
[2025-03-20 15:46] LABS: GLUCOSE,RANDOM 148.0 mg/dL (74-106)
[2025-03-20 15:48] LABS: SGPT/ALT 16.0 U/L (13-61)
[2025-03-20 15:49] LABS: CREATININE 1.8 mg/dL (0.55-1.3)
[2025-03-20 15:50] LABS: SGOT/AST 15.0 U/L (15-37); TOT PROT 7.8 g/dl (6.4-8.2)
[2025-03-20 15:51] LABS: ALK PHOS 87.0 U/L (45-117)
[2025-03-20 16:31] LABS: HIV INTERPRETATION NEGATIVE (NEGATIVE)
[2025-03-20 16:32] LABS: HCV DIAGNOSTIC IN-HOUSE W/RFLX NON-REACTIVE (NONREACTIVE)
[2025-03-20] MEDS: HEPARIN NA (PORCINE) 5,000 UNITS/ML 1ML VIAL SQ SCH (23:00)
[2025-03-20 23:03] VITALS: BMI 27.5
[2025-03-21] MEDS: FUROSEMIDE 40 MG TABLET (FP) PO SCH (05:59)
[2025-03-21] MEDS: INSULIN ASPART SLIDING SCALE (NOVOLOG) 1 VIAL SQ SCH (05:59)
[2025-03-21] MEDS: INSULIN GLARGINE (LANTUS) 100 UNITS/ML UNITS SQ SCH (06:00)
[2025-03-21 09:45] LABS: ABSOLUTE IMMATURE GRANULOCYTES 0.02 x10^3/uL (0.0-0.031); BASOPHILS # 0.03 x10^3/uL (0.01-0.08); EOSINOPHIL % 0.0 % (0.8-7.0); EOSINOPHILS # 0.00 x10^3/uL (0.04-0.54); MCHC 31.0 g/dl (32.3-36.5); MEAN CELL VOLUME 105.0 fl (79.0-92.2); MEAN PLT VOLUME 10.8 fl (9.4-12.4); MONOCYTE # 0.74 x10^3/uL (0.30-0.82); MONOCYTE % 11.1 % (5.3-12.2); RDW 13.6 % (12.6-16.6)
[2025-03-21 10:44] LABS: SGPT/ALT 16.0 U/L (13-61)
[2025-03-21 10:45] LABS: SGOT/AST 13.0 U/L (15-37)
[2025-03-21 10:46] LABS: CO2 29.0 mmol/L (21-32); GLUCOSE,RANDOM 159.0 mg/dL (74-106); TOT PROT 7.1 g/dl (6.4-8.2)
[2025-03-21 10:47] LABS: ALK PHOS 75.0 U/L (45-117)
[2025-03-21 10:48] LABS: CREATININE 1.6 mg/dL (0.55-1.3)
[2025-03-21] MEDS: LOSARTAN POTASSIUM 50 MG TABLET PO SCH (12:01)
[2025-03-21] MEDS: ASPIRIN COATED 81 MG TABLET.EC PO SCH (12:22)
[2025-03-21] MEDS: FINASTERIDE 5 MG TABLET (FP) PO SCH (12:24)
[2025-03-21] MEDS: AMINO ACIDS 4.25%/D5W 1,000 ML IV SCH (20:14)
[2025-03-21] MEDS: ATORVASTATIN CA 20 MG TABLET (FP) PO SCH (21:27)
[2025-03-21] MEDS: LATANOPROST 0.005% OPHTH SOLN 2.5ML BOTTLE OU SCH (22:18)
[2025-03-22 13:10] LABS: ABSOLUTE IMMATURE GRANULOCYTES 0.01 x10^3/uL (0.0-0.031); BASOPHILS # 0.02 x10^3/uL (0.01-0.08); EOSINOPHIL % 0.2 % (0.8-7.0); EOSINOPHILS # 0.01 x10^3/uL (0.04-0.54); MCHC 31.0 g/dl (32.3-36.5); MEAN CELL VOLUME 105.4 fl (79.0-92.2); MEAN PLT VOLUME 10.8 fl (9.4-12.4); MONOCYTE # 0.69 x10^3/uL (0.30-0.82); MONOCYTE % 14.1 % (5.3-12.2); RDW 13.5 % (12.6-16.6)
[2025-03-22 13:44] LABS: CO2 31.0 mmol/L (21-32); GLUCOSE,RANDOM 163.0 mg/dL (74-106)
[2025-03-22 13:47] LABS: CREATININE 1.7 mg/dL (0.55-1.3); SGOT/AST 18.0 U/L (15-37); SGPT/ALT 17.0 U/L (13-61)
[2025-03-22 13:49] LABS: TOT PROT 7.1 g/dl (6.4-8.2)
[2025-03-22 13:50] LABS: ALK PHOS 74.0 U/L (45-117)
[2025-03-23 03:46] VITALS: RESP 18
[2025-03-23 12:40] LABS: ABSOLUTE IMMATURE GRANULOCYTES 0.01 x10^3/uL (0.0-0.031); BASOPHILS # 0.04 x10^3/uL (0.01-0.08); EOSINOPHIL % 0.4 % (0.8-7.0); EOSINOPHILS # 0.02 x10^3/uL (0.04-0.54); MCHC 31.7 g/dl (32.3-36.5); MEAN CELL VOLUME 104.2 fl (79.0-92.2); MEAN PLT VOLUME 10.6 fl (9.4-12.4); MONOCYTE # 0.72 x10^3/uL (0.30-0.82); MONOCYTE % 15.2 % (5.3-12.2); RDW 13.3 % (12.6-16.6)
[2025-03-23 13:14] LABS: CO2 28.0 mmol/L (21-32); GLUCOSE,RANDOM 136.0 mg/dL (74-106)
[2025-03-23 13:17] LABS: CREATININE 1.8 mg/dL (0.55-1.3)
[2025-03-23 13:18] LABS: SGOT/AST 16.0 U/L (15-37); SGPT/ALT 15.0 U/L (13-61)
[2025-03-23 13:19] LABS: TOT PROT 6.8 g/dl (6.4-8.2)
[2025-03-23 13:20] LABS: ALK PHOS 68.0 U/L (45-117)
[2025-03-24 10:31] LABS: MCHC 31.5 g/dl (32.3-36.5); MEAN CELL VOLUME 103.8 fl (79.0-92.2); MEAN PLT VOLUME 10.8 fl (9.4-12.4); RDW 13.1 % (12.6-16.6)
[2025-03-24 10:34] LABS: ABSOLUTE IMMATURE GRANULOCYTES 0.02 x10^3/uL (0.0-0.031); BASOPHILS # 0.03 x10^3/uL (0.01-0.08); MCHC 31.7 g/dl (32.3-36.5); MEAN CELL VOLUME 103.7 fl (79.0-92.2)
[2025-03-24 10:35] LABS: EOSINOPHIL % 1.4 % (0.8-7.0); EOSINOPHILS # 0.08 x10^3/uL (0.04-0.54); MONOCYTE # 0.67 x10^3/uL (0.30-0.82); MONOCYTE % 11.7 % (5.3-12.2); RDW 13.0 % (12.6-16.6)
[2025-03-24 10:59] LABS: CO2 32.0 mmol/L (21-32); GLUCOSE,RANDOM 139.0 mg/dL (74-106)
[2025-03-24 11:01] LABS: CREATININE 1.9 mg/dL (0.55-1.3); IRON SERUM 62.0 ug/dL (50-175)
[2025-03-24 11:02] LABS: SGOT/AST 19.0 U/L (15-37); SGPT/ALT 17.0 U/L (13-61)
[2025-03-24 11:04] LABS: TOT PROT 6.3 g/dl (6.4-8.2)
[2025-03-24 11:06] LABS: ALK PHOS 67.0 U/L (45-117)
[2025-03-24 18:24] VITALS: BP 116/62; PULSE 52; TEMP 97.5
== END 2025-03-24 18:39 | disposition home or self-care (01) | DRG 309 ==
LOC: JER 11:06 → JERBED 20:06 → J6W TELE 22:56
PROVIDERS: ADMIT Student in an Organized Health Care Education/Training Program; ATTEND Internal Medicine
DX: I47.20 Ventricular tachycardia, unspecified (principal); I13.0 Hypertensive heart and chronic kidney disease with heart failure and stage 1 through stage 4 chronic kidney disease, or unspecified chronic kidney disease; I50.32 Chronic diastolic (congestive) heart failure; E11.22 Type 2 diabetes mellitus with diabetic chronic kidney disease; I45.3 Trifascicular block; N18.30 Chronic kidney disease, stage 3 unspecified; I25.10 Atherosclerotic heart disease of native coronary artery without angina pectoris; E78.5 Hyperlipidemia, unspecified
CPT/HCPCS: 36415; 71045-TC-FY; 80053; 82550; 82553; 82746; 82962; 83540; 83550; 83735; 84100; 84439; 84443; 84484; 85025; 85027; 85610; 85730; 86803; 87389; 93005; 93010; 93306-TC; 93971; 97162-GP; 99285-25